=== PATIENT | male | born 1965 | race Caucasian/White ===

== ENCOUNTER 2016-05-04 18:58 | Emergency (ER) | payer OTHER ==
--- NOTE | 2016-05-04 19:13 | UC ---
Abdominal Pain Male HPI - HPI Summary HPI Summary: The patient comes in today for: 1. Left upper abdominal/side pain: Onset: Since last night (24 hours) Palliative/provocative: Coughing makes it worse. Stretching also can make it worse. Movement can make it worse. Eating does not affect the pain. Quality: Sharp, gripping pain. Region: Left upper quadrant/side Severity: 2/10 persistent: Coughing 4/10 Time: Constant. Associated symptoms: Fevers: None Change in bowel habits: None. Injury: None. * - History of Current Complaint Chief Complaint: UCAbdominalPain Stated Complaint: SHARP SIDE PAIN Time Seen by Provider: 05/04/16 19:06 Hx Obtained From: Patient - Allergies/Home Medications Allergies/Adverse Reactions: Allergies Allergy/AdvReac Type Severity Reaction Status Date / Time No Known Allergies Allergy Verified 05/05/13 08:00 Home Medications: Home Medications Niacin 05/04/16 [History] PMH/Surg Hx/FS Hx/Imm Hx Previously Healthy: No - "Liver enzymes are high." Endocrine History Of: Reports: Dyslipidemia Denies: Diabetes, Thyroid Disease, Hyperthyroidism, Hypothyroidism Cardiovascular History Of: Denies: Cardiac Disorders, Hypertension, Pacemaker/ICD, Myocardial Infarction , Congestive Heart Failure, Atrial Fibrillation, Deep Vein Thrombosis, Bleeding Disorders Respiratory History Of: Reports: Asthma - mild Denies: COPD, Bronchitis, Pneumonia, Pulmonary Embolism GI/ History Of: Denies: Gastroesophageal Reflux, Ulcer, Gastrointestinal Bleed, Gall Bladder Disease, Kidney Stones, Diverticulitis, Renal Disease, Urosepsis Neurological History Of: Denies: TIA, CVA, Dementia, Seizures, Migraine Psychological History Of: Reports: Anxiety Denies: Depression, Bipolar Disorder, Schizophrenia, Post Traumatic Stress Disorder Cancer History Of: Denies: Lung Cancer, Colorectal Cancer, Breast Cancer, Prostate Cancer, Cervical Cancer Other History Of: Negative For: HIV, Hepatitis B, Hepatitis C, Anticoagulant Therapy - Surgical History Surgical History: Yes Surgery Procedure, Year, and Place: WISDOM TEETH - Family History Known Family History: Positive: Cardiac Disease Negative: Hypertension - Social History Occupation: Employed Full-time Alcohol Use: Weekly Substance Use Type: None Smoking Status (MU): Never Smoked Tobacco Review of Systems Constitutional: Negative Skin: Negative Eyes: Negative ENT: Negative Respiratory: Negative Cardiovascular: Negative Gastrointestinal: Abdominal Pain Genitourinary: Negative All Other Systems Reviewed And Are Negative: Yes Physical Exam Triage Information Reviewed: Yes Appearance: Well-Appearing, No Pain Distress, Well-Nourished Eyes: Positive: Conjunctiva Clear. Negative: Discharge ENT: Positive: Hearing grossly normal. Negative: Pharyngeal erythema, Nasal congestion, Nasal drainage, TM bulging, TM dull, TM red, Tonsillar swelling, Tonsillar exudate Dental: Negative: Gross Decay/Caries @, Dental Fracture @ Neck: Positive: Supple, Nontender, No Lymphadenopathy. Negative: Nuchal Rigidity Respiratory: Positive: Chest non-tender, Lungs clear, No respiratory distress, No accessory muscle use. Negative: Crackles, Wheezing Cardiovascular: Positive: RRR, No Murmur Abdomen Description: Positive: No Organomegaly, Soft. Negative: Nontender - There was tenderness to palpation of the upper left, lateral abdomen just below the inferior rib cage area. No percussion tenderness or rebound tenderness., Distended, Guarding Musculoskeletal: Positive: Strength Intact, ROM Intact, No Edema Neurological: Positive: Alert, Muscle Tone Normal Psychological: Positive: Age Appropriate Behavior, Consolable Skin: Negative: rashes, breakdown Abd Pain Male Course/Dx - Differential Dx/Clinical Impression Differential Diagnosis/HQI/PQRI: Constipation, Renal Colic Provider Diagnoses: Left upper side abdominal pain, etiology unknown. Discharge - Discharge Plan Condition: Stable Disposition: HOME Patient Education Materials: Abdominal Pain (ED) Referrals: Sunny Ackerman MD [Primary Care Provider] - As Soon As Possible (If you are not going to the ER, please contact your primary care provider as soon as you can for evaluation and treatment of your abdominal pain.)
[2016-05-04 19:25] VITALS: BP 136/80
== END 2016-05-04 20:18 | disposition left against medical advice (07) ==
LOC: UCEAST 18:58
DX: R10.12 Left upper quadrant pain (principal)
CPT/HCPCS: 99212; G0463

== ENCOUNTER 2016-10-22 08:24 | Emergency (ER) | payer OTHER ==
[2016-10-22 08:32] VITALS: BP 124/77
[2016-10-22] MEDS ORDERED: ceFAZolin 500 MG VIAL(*) 500 MG VIAL IM ONE (10:08)
[2016-10-22 16:26] LABS: Hematocrit 47 % (42-52); Hemoglobin 16.2 g/dl (14.0-18.0); Mean Corpuscular HGB Conc 34 g/dl (31-36); Mean Corpuscular Hemoglobin 29 pg (27-31); Mean Corpuscular Volume 84 fL (80-94); Mean Platelet Volume 8 um3 (7.4-10.4); Red Blood Count 5.62 10^6/ul (4.0-5.4); Red Cell Distribution Width 14 % (10.5-15); White Blood Count 8.4 10^3/ul (3.5-10.8)
[2016-10-22 18:19] LABS: Erythrocyte Sed Rate 22 mm/Hr (0-14)
--- NOTE | 2016-11-04 13:16 | UC ---
Nicole Brown Salem, scribed for Estefania Jacinto MD on 10/22/16 at 0956 . Skin Complaint HPI - HPI Summary HPI Summary: Patient is a 51 y/o M who presents to the with a red insect bite-like area to his left calf for the past couple of days. He states that the area became larger and more painful last night. He reports chills (teeth chattering), diaphoresis, and fever (since 0300). He states that he used a needle with iodine last night to remove the white head from site. Pt reports a Tetanus shot within the last 5 years. 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 Patients medication reviewed this visit. - History of Current Complaint Chief Complaint: [facility], [place] Time Seen by Provider: 10/22/16 09:30 Stated Complaint: BUG BITE Hx Obtained From: Patient Onset/Duration: Gradual Onset, Lasting Days, Still Present Skin Exposure Onset/Duration: Days Ago Timing: Constant Onset Severity: Moderate Current Severity: Moderate Pain Intensity: 4 Pain Scale Used: 0-10 Numeric Location: Other - LLE. Character: Swelling, Redness Aggravating: Nothing Alleviating: Nothing Associated Signs & Symptoms: Positive: Negative Related History: Other: - Unknown. - Allergy/Home Medications Allergies/Adverse Reactions: Allergies Allergy/AdvReac Type Severity Reaction Status Date / Time No Known Allergies Allergy Verified 10/22/16 08:26 Review of Systems Constitutional: Fever, Chills Skin: Other - See HPI. All Other Systems Reviewed And Are Negative: Yes PMH/Surg Hx/FS Hx/Imm Hx Other History Of: Negative For: HIV, Hepatitis B, Hepatitis C, Anticoagulant Therapy - Surgical History Surgical History: Yes Surgery Procedure, Year, and Place: WISDOM TEETH - Family History Known Family History: Positive: Cardiac Disease Negative: Hypertension - Social History Alcohol Use: Weekly Substance Use Type: None Smoking Status (MU): Never Smoked Tobacco Physical Exam Triage Information Reviewed: Yes Appearance: Well-Nourished Vital Signs: Initial Vital Signs Temp 100.3 F 10/22/16 08:27 Pulse 95 10/22/16 08:27 Resp 16 10/22/16 08:27 BP 124/77 10/22/16 08:27 Pulse Ox 98 10/22/16 08:27 Vital Signs Reviewed: Yes Eye Exam: Normal ENT Exam: Normal Neck exam: Normal Neck: Positive: No Lymphadenopathy Respiratory Exam: Normal Respiratory: Positive: Chest non-tender, Lungs clear, Normal breath sounds, No respiratory distress, No accessory muscle use Cardiovascular Exam: Normal Cardiovascular: Positive: RRR, No Murmur, Pulses Normal, Brisk Capillary Refill Abdominal Exam: Normal Abdomen Description: Positive: Nontender, No Organomegaly, Soft Bowel Sounds: Positive: Present Musculoskeletal Exam: Normal Musculoskeletal: Positive: Strength Intact Neurological Exam: Normal - nonfocal, grossly intact Psychological Exam: Normal - conversing easily and appropriately Skin Exam: Other - 17 length and redness. 12 width posterior calf with central indurations. Course/Dx - Course Course Of Treatment: Considered below diff dx, most likely includes dermatitis, cellulitis. Will start doxycycline - close f/u is important, kasi if worse / new symptoms. D/w pt. - Diagnoses Provider Diagnoses: Cellulitis - left post calf Discharge - Discharge Plan Condition: Stable Disposition: HOME Prescriptions: DOXYcycline CAP(*) [DOXYcycline 100MG CAP(*)] 100 mg PO BID #20 cap Naproxen [Naproxen EC 500 MG TAB] 500 mg PO Q12H PRN #30 tab PRN Reason: Pain Patient Education Materials: Cellulitis (ED) Referrals: Sunny Ackerman MD [Primary Care Provider] - Additional Instructions: As discussed, it is okay to be outside, but please keep it to a minimum. Avoid astringents, hydrogen peroxide, and rubbing alcohol. It is okay to shower once a day. Preferably use white soap, but green or red is okay. Use bandage and gauze, but make sure it is not too tight. Keep your leg elevated above your heart frequently throughout the day for the next few days. Use Ibuprofen and/ or Alleve for swelling (check with your doctor). Also, eat yogurt (or probiotic ) often as discussed. Please, don't return to work for another couple of days. Please follow up with your primary care provider in 1-2 days. Blood work today. (see attached) Seek medical attention for worse or new problems in the meantime. The documentation as recorded by the Nicole lam Salem accurately reflects the service I personally performed and the decisions made by me, Estefania Jacinto MD.
== END 2016-10-22 11:05 | disposition home or self-care (01) ==
LOC: UCEAST 08:24
DX: L03.116 Cellulitis of left lower limb (principal)
CPT/HCPCS: 36415; 85025; 85652; 86140; 86618; 99212; G0463; J0690